=== PATIENT | male | born 2000 | race Caucasian/White ===

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

== ENCOUNTER 2018-12-30 20:29 | Inpatient (IN) | payer BC ==
[2018-12-30] MEDS ORDERED: ALPRAZolam TAB* 0.5 MG PO ONE (20:46)
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
[2018-12-30 21:42] LABS: ABS Monocytes 0.5 10^3/ul (0-0.8); ABS Neutrophils 9.2 10^3/ul (1.5-7.7); Eosinophil % 0.1 %; Hematocrit 43 % (42-52); Hemoglobin 15.2 g/dL (14.0-18.0); Mean Corpuscular HGB Conc 36 g/dL (31-36); Mean Corpuscular Hemoglobin 32 pg (27-31); Mean Corpuscular Volume 91 fL (80-94); Mean Platelet Volume 8.1 fL (7.4-10.4); Platelet Count 197 10^3/uL (150-450); Red Blood Count 4.69 10^6 /uL (4.18-5.48); Red Cell Distribution Width 12 % (10-15); White Blood Count 10.7 10^3/uL (3.5-10.8)
[2018-12-30 21:55] LABS: ALT 20 U/L (7-52); AST 16 U/L (13-39); Albumin 4.7 g/dL (3.2-5.2); Albumin/Globulin Ratio 1.7 (1-3); Alkaline Phosphatase 72 U/L (34-104); Anion Gap 13 mmol/L (2-11); BUN/Creatinine Ratio 13.6 (8-20); Blood Urea Nitrogen 16 mg/dL (6-24); CO2 Carbon Dioxide 19 mmol/L (22-32); Chloride 105 mmol/L (101-111); EGFR African American 95.2 (>60); EGFR Non-African American 78.7 (>60); Globulin 2.7 g/dL (2-4); Glucose 104 mg/dL (70-100); Potassium 3.3 mmol/L (3.5-5.0); Sodium 137 mmol/L (135-145); Total Protein 7.4 g/dL (6.4-8.9)
[2018-12-30] MEDS ORDERED: Potassium Chlor TAB* 20 MEQ TAB.ER PO ONE (21:57)
[2018-12-30 22:01] LABS: Acetaminophen < 15 mcg/mL; Alcohol 113 mg/dL (<10); Salicylate < 2.50 mg/dL (<30)
[2018-12-30 22:26] LABS: Urine Appearance Clear; Urine Bilirubin Negative (Negative); Urine Blood Negative (Negative); Urine Color Straw; Urine Glucose Negative (Negative); Urine Ketones Negative (Negative); Urine Nitrite Negative (Negative); Urine Protein Negative (Negative); Urine Specific Gravity 1.005 (1.010-1.030); Urine Urobilinogen Negative (Negative)
[2018-12-30 22:41] LABS: Urine Benzodiazepine Screen None Detected (None Detect); Urine Opiates Screen None Detected (None Detect)
[2018-12-31] MEDS ORDERED: Al Hydrox/Mg Hydrox/Simet LIQ* 30 ML UDC PO PRN (03:00)
[2018-12-31] MEDS ORDERED: Acetaminophen TAB* 325 MG PO PRN (03:00)
[2018-12-31] MEDS ORDERED: LORazepam PO 0-6 for WAM protocol PO SCH (04:00)
[2018-12-31] MEDS: Thiamine TAB* 100 MG TAB PO SCH (10:14)
[2018-12-31] MEDS: Folic Acid TAB* 1 MG PO SCH (10:14)
[2018-12-31] MEDS: Multivitamins/Minerals TAB PO SCH (10:14)
[2018-12-31] MEDS: Cyanocobalamin TAB* 500 MCG PO SCH (10:15)
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
[2019-01-01 07:21] LABS: HDL Cholesterol 56.7 mg/dL
[2019-01-01] MEDS: Cyanocobalamin TAB* 500 MCG PO SCH (10:50)
[2019-01-01] MEDS: Folic Acid TAB* 1 MG PO SCH (10:50)
[2019-01-01] MEDS: Thiamine TAB* 100 MG TAB PO SCH (10:50)
[2019-01-01] MEDS: Multivitamins/Minerals TAB PO SCH (10:50)
[2019-01-01] MEDS: Escitalopram * 5 MG TAB PO SCH (11:03)
[2019-01-01] MEDS: hydrOXYzine HCL TAB* 25 MG PO PRN ×2 (15:43→21:11)
--- NOTE | 2019-01-01 19:42 | PN ---
Subjective - Subjective Date of Service: 01/01/19 Service Type: 60519 Hosp care 35 min high complexity Subjective: Donal talked at length about his high anxiety and his concerns. He's struggling with the transition from youth to adulthood and asking a lot of questions of himself as well as second guessing himself. The conversation is wide ranging and in the end Donal agrees to try Lexapro and hydroxyzine. Objective - General Observations Appearance: Disheveled Appears Stated Age: Yes Stature: WNL Posture: WNL Eye Contact: Intense Behavior/Activity: WNL - Interaction Observations Attitude Towards Examiner: Cooperative, Anxious Stated Mood: Dysphoric Affect: Restricted Speech Pattern/Tone: Clear Thought Process: Coherent, Goal Directed Perception: WNL Thought Content: Preoccupation/Ruminations Hallucination Type: None Delusion Type: None - Cognitive Function Orientation: A&O x 4 Level of Consciousness: Awake Cognition: WNL, Impaired Attention/Concentration Estimated Intelligence: Normal Insight: WNL Judgment Within Normal Limits: Yes - Medication Compliance Cooperative with Inpatient Medication Regimen: Yes - Group Participation Participates in Group Activities: Yes Assessment - Assessment Merits Inpatient Hospitalization: For Immediate Safety Inpatient DSM-V Dx: F33.2 Clinical Impression: Donal is a 18-year-old man with a history of major depressive disorder and generalized anxiety disorder who comes to the hospital after attempting to hang himself. At this time he is feeling better and is anticipating trying medications to reduce his anxiety and impulsivity. Plan - Plan Treatment Plan: Name: TARUN NOLAN Birthdate: 2000 [id number] Start Lexapro 5 mg Start hydroxyzine HCl 25 mg q 4 hours PRN anxiety Continue with milieu and individual therapy Continued Medication Management: Different Medication Medications: Current Medications Acetaminophen (Tylenol Tab*) 650 mg PO Q4H PRN PRN Reason: PAIN; OR TEMP >101 Al Hydrox/Mg Hydrox/Simethicone (Maalox Plus*) 30 ml PO Q4H PRN PRN Reason: INDIGESTION Cyanocobalamin (Vitamin B12 Tab*) 500 mcg PO DAILY [facility] Last Admin: 01/01/19 10:50 Dose: 500 mcg Escitalopram Oxalate (Lexapro *) 5 mg PO DAILY [facility] Last Admin: 01/01/19 11:03 Dose: 5 mg Folic Acid (Folvite Tab*) 1 mg PO DAILY [facility] Last Admin: 01/01/19 10:50 Dose: 1 mg Hydroxyzine HCl (Atarax Tab*) 25 mg PO Q4H PRN PRN Reason: ANXIETY Last Admin: 01/01/19 15:43 Dose: 25 mg Multivitamins/Minerals (Theragran/Minerals Tab*) 1 tab PO DAILY [facility] Last Admin: 01/01/19 10:50 Dose: 1 tab Thiamine HCl (Vitamin B-1 Tab*) 100 mg PO DAILY [facility] Last Admin: 01/01/19 10:50 Dose: 100 mg
[2019-01-02] MEDS: Folic Acid TAB* 1 MG PO SCH (08:34)
[2019-01-02] MEDS: Cyanocobalamin TAB* 500 MCG PO SCH (08:35)
[2019-01-02] MEDS: Escitalopram * 5 MG TAB PO SCH (08:35)
[2019-01-02] MEDS: Thiamine TAB* 100 MG TAB PO SCH (08:35)
[2019-01-02] MEDS: Multivitamins/Minerals TAB PO SCH (08:35)
[2019-01-02 09:22] VITALS: BP 119/68
[2019-01-02] MEDS: hydrOXYzine HCL TAB* 25 MG PO PRN (11:25)
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
== END 2019-01-02 11:48 | disposition home or self-care (01) | DRG 751 ==
LOC: ED 20:29 → BSU 12-31 01:50
PROVIDERS: ADMIT Psychiatry & Neurology Psychiatry; ATTEND Psychiatry & Neurology Psychiatry
PROC: HZ2ZZZZ Detoxification Services for Substance Abuse Treatment (ICD-10-PCS; principal; 2018-12-31)
DX: F33.2 Major depressive disorder, recurrent severe without psychotic features (principal); R45.851 Suicidal ideations; F41.1 Generalized anxiety disorder; Y90.5 Blood alcohol level of 100-119 mg/100 ml; Z81.8 Family history of other mental and behavioral disorders; Z72.89 Other problems related to lifestyle
CPT/HCPCS: 36415; 80053; 80061; 80307; 80320; 80329; 81003; 83036; 84443; 85025; 99222; 99233; 99238; 99285; A9270-GY; G0480

== ENCOUNTER 2021-04-25 13:03 | Inpatient (IN) ==
[2021-04-25 14:20] LABS: ABS Lymphocytes 1.2 10^3/ul (1.0-4.8); ABS Monocytes 0.5 10^3/ul (0-0.8); ABS Neutrophils 5.7 10^3/ul (1.5-7.7); Eosinophil % 0.2 %; Hematocrit 43 % (42-52); Hemoglobin 15.7 g/dL (14.0-18.0); Lymphocyte % 16.3 %; Mean Corpuscular HGB Conc 36 g/dL (31-36); Mean Corpuscular Hemoglobin 33 pg (27-31); Mean Corpuscular Volume 92 fL (80-94); Mean Platelet Volume 8.2 fL (7.4-10.4); Nucleated Red Blood Cells % 0.1; Platelet Count 236 10^3/uL (150-450); Red Blood Count 4.72 10^6 /uL (4.18-5.48); Red Cell Distribution Width 12 % (10-15); White Blood Count 7.5 10^3/uL (3.5-10.8)
[2021-04-25 14:25] LABS: Urine Appearance Clear; Urine Bilirubin Negative (Negative); Urine Blood Negative (Negative); Urine Color Straw; Urine Glucose Negative (Negative); Urine Ketones Trace (Negative); Urine Nitrite Negative (Negative); Urine Protein Negative (Negative); Urine Specific Gravity 1.008 (1.002-1.030); Urine Urobilinogen Negative (Negative)
[2021-04-25 14:37] LABS: ALT 19 U/L (7-52); AST 17 U/L (13-39); Albumin 4.8 g/dL (3.2-5.2); Albumin/Globulin Ratio 1.8 (1-3); Alkaline Phosphatase 59 U/L (35-149); Anion Gap 10 mmol/L (2-11); Blood Urea Nitrogen 18 mg/dL (6-24); CO2 Carbon Dioxide 22 mmol/L (22-32); Calcium 9.9 mg/dL (8.6-10.3); Chloride 105 mmol/L (101-111); Globulin 2.6 g/dL (2-4); Glucose 105 mg/dL (70-100); Potassium 3.2 mmol/L (3.5-5.0); Sodium 137 mmol/L (135-145); Total Protein 7.4 g/dL (6.4-8.9); eGFR CKD-EPI 91.3 (>60)
[2021-04-25 14:54] LABS: Alcohol, S < 13 mg/dL (<13); Salicylate < 2.50 mg/dL (<30)
[2021-04-25 14:57] LABS: Acetaminophen < 15 mcg/mL
[2021-04-25 15:12] LABS: Urine Benzodiazepine Screen None Detected (None Detect); Urine Cannabinoids Screen Presumptive Positive (None Detect); Urine Opiates Screen None Detected (None Detect)
[2021-04-25] MEDS ORDERED: Al Hydrox/Mg Hydrox/Simet LIQ 30 ML UDC PO PRN (17:08)
[2021-04-25 17:15] LABS: Rapid COVID-19 Molecular Undetected (Undetected)
[2021-04-26 08:18] LABS: HDL Cholesterol 58.6 mg/dL
[2021-04-26] MEDS: Vitamin THERAPEUTIC TAB PO SCH (11:50)
[2021-04-27 08:07] VITALS: BP 121/55
[2021-04-27] MEDS: Vitamin THERAPEUTIC TAB PO SCH (08:39)
== END 2021-04-27 10:00 | disposition home or self-care (01) | DRG 755 ==
LOC: ED 13:03 → EDHOLD 17:08 → BSU 18:21
PROVIDERS: ADMIT Psychiatry & Neurology Psychiatry; ATTEND Psychiatry & Neurology Psychiatry